=== PATIENT | male | born 1990 | race Caucasian/White ===

== ENCOUNTER 2016-12-28 09:23 | Emergency (ER) | payer OTHER ==
[2016-12-28] MEDS ORDERED: NS 0.9% 1000 ML* 1,000 ML IV ONE ×2 (10:21→12:56)
[2016-12-28 11:01] LABS: Hematocrit 52 % (42-52); Hemoglobin 17.4 g/dl (14.0-18.0); Mean Corpuscular HGB Conc 33 g/dl (31-36); Mean Corpuscular Hemoglobin 30 pg (27-31); Mean Corpuscular Volume 90 fL (80-94); Mean Platelet Volume 9 um3 (7.4-10.4); Red Blood Count 5.77 10^6/ul (4.0-5.4); Red Cell Distribution Width 14 % (10.5-15); White Blood Count 5.9 10^3/ul (3.5-10.8)
[2016-12-28 11:16] LABS: Albumin 4.3 g/dL (3.2-5.2); BUN/Creatinine Ratio 15.6 (8-20); C Reactive Protein 6.92 mg/L (< 5.00); Calcium 9.4 mg/dL (8.6-10.3); EGFR African American 87.4 (>60); EGFR Non-African American 67.9 (>60); Globulin 2.5 g/dL (2-4); Potassium 4.2 mmol/L (3.5-5.0); Total Bilirubin 1.4 mg/dL (0.2-1.0); Total Protein 6.8 g/dL (6.4-8.9)
[2016-12-28] MEDS ORDERED: Iohexol 300* (CONTRAST) 10 ML SDV IV ONE (13:19)
--- NOTE | 2016-12-28 14:23 | RAD ---
INDICATION: Abdominal pain with eating. COMPARISON: There are no prior studies available for comparison. TECHNIQUE: Multiple real-time images of the right upper quadrant were obtained. FINDINGS: There are several small gallbladder wall polyps measuring up to 2-3 mm in size. No gallstones are seen. No gallbladder wall thickening or pericholecystic fluid is present. No intra or extrahepatic ductal distention is present. The common bile duct measured 0.2 cm in diameter. The liver is normal in size without significant focal abnormality. The pancreas is partially obscured by overlying bowel gas. The right kidney is normal in size without evidence for hydronephrosis. IMPRESSION: SMALL GALLBLADDER POLYPS, OTHERWISE UNREMARKABLE STUDY.
--- NOTE | 2016-12-28 15:04 | RAD ---
Indication: Abdominal pain. Contrast: Administered 133.0 ml of OMNIPAQUE 300 mgi/ml. CT of the abdomen and pelvis was performed after oral and IV contrast administration. Coronal and sagittal reconstructed images were obtained. Delayed images of the kidneys were also obtained. The lung bases demonstrate no pleural fluid, nodules or masses. Heart is of normal size without evidence of pericardial effusion. The liver is normal in size. There are no focal lesions or intrahepatic ductal dilatation noted. The spleen is normal in size. The pancreas demonstrates no mass or pancreatic ductal dilatation. The common duct is not dilated. The gallbladder demonstrates no calcified gallstones. No adrenal masses are noted. The kidneys demonstrate symmetric nephrograms without focal lesions. No hydronephrosis or hydroureter is noted. No retroperitoneal lymphadenopathy is noted. No dilated loops of bowel are noted. Aorta and inferior vena cava are unremarkable. CT of the pelvis demonstrates urinary bladder to be unremarkable. The colon is filled with stool no hernias are noted. No evidence of bowel obstruction is noted. No abnormal dilatation of bowel is noted. Urinary bladder is otherwise unremarkable. The prostate is unremarkable. IMPRESSION: NO EVIDENCE OF ABNORMAL MASSES OR FLUID COLLECTIONS ARE NOTED. NO EVIDENCE OF BOWEL OBSTRUCTION IS NOTED. CONTRAST IS NOTED IN THE COLON.
[2016-12-28 15:20] LABS: Urine Bilirubin Negative (Negative); Urine Glucose Negative (Negative); Urine Nitrite Negative (Negative)
[2016-12-28 15:40] VITALS: BP 113/57
[2016-12-28] MEDS ORDERED: Magnesium CITRATE* 300 ML BTL PO ONE (15:41)
--- NOTE | 2016-12-28 15:44 | ED ---
Gricelda Lock Edward, scribed for Bean Castro MD on 12/28/16 at 1254 . Abdominal Pain/Male - HPI Summary HPI Summary: 26 y/o male presents to ED c/o ABD pain and constipation. Patient states that he has severe ABD pain every time he eats, starting Sunday afternoon. The pain is located in the LUQ and lasts around 20 minutes before passing. Associated sx : no bowel movements for the last few days, possible dehydration and RUQ ABD pain. Denies vomiting, dysuria, problems with urination, nausea, fever and chills. Patient works out frequently and takes branched amino acids and protein supplements. FHx GERD (father). No SHx. - History of Current Complaint Chief Complaint: EDAbdPain Stated Complaint: ABD PAIN Time Seen by Provider: 12/28/16 12:43 Hx Obtained From: Patient Onset/Duration: Lasting Minutes - Last around 20 minutes every time he eats Severity Initially: Severe - "Pain puts him on back every time he eats" Severity Currently: Moderate Pain Intensity: 5 Pain Scale Used: 0-10 Numeric Location: Discrete At: LUQ Aggravating Factor(s): Food - Pain every time he eats Associated Signs And Symptoms: Positive: Constipation. Negative: Fever, Urinary Symptoms, Nausea, Vomiting - Allergies/Home Medications Allergies/Adverse Reactions: Allergies Allergy/AdvReac Type Severity Reaction Status Date / Time Lactose Intolerance (GI) Allergy Congestion Verified 12/28/16 09:47 PMH/Surg Hx/FS Hx/Imm Hx Previously Healthy: Yes GI History: Denies: Hx Gastroesophageal Reflux Disease Infectious Disease History: No Infectious Disease History: Denies: Traveled Outside the [place] in Last 30 Days - Family History Known Family History: Positive: Other - Father - GERD - Social History Alcohol Use: Occasionally Substance Use Type: Reports: Marijuana Substance Use Comment - Amount & Last Used: daily Hx Tobacco Use: Yes Smoking Status (MU): Former Smoker Review of Systems Constitutional: Negative Negative: Fever, Chills Eyes: Negative ENT: Negative Cardiovascular: Negative Respiratory: Negative Positive: Abdominal Pain - Left side every time he eats, Other - Constipation. Negative: Vomiting, Nausea Genitourinary: Negative Negative: dysuria Musculoskeletal: Negative Skin: Negative Neurological: Negative Psychological: Normal All Other Systems Reviewed And Are Negative: Yes Physical Exam Triage Information Reviewed: Yes Vital Signs On Initial Exam: Initial Vitals Temp Pulse Resp BP Pulse Ox 98.3 F 80 18 134/72 99 12/28/16 09:26 12/28/16 09:26 12/28/16 09:26 12/28/16 09:26 12/28/16 09:26 Vital Signs Reviewed: Yes Appearance: Positive: Well-Appearing, No Pain Distress, Well-Nourished Skin: Positive: Warm, Skin Color Reflects Adequate Perfusion, Dry Head/Face: Positive: Normal Head/Face Inspection Eyes: Positive: Normal, EOMI, LALA ENT: Positive: Normal ENT inspection Neck: Positive: Supple, Nontender Respiratory/Lung Sounds: Positive: Clear to Auscultation, Breath Sounds Present Cardiovascular: Positive: RRR Abdomen Description: Positive: Soft, Other: - Tenderness in LUQ and RUQ Bowel Sounds: Positive: Present Musculoskeletal: Positive: Normal, Strength/ROM Intact Neurological: Positive: Normal, Sensory/Motor Intact, Alert, Oriented to Person Place, Time Psychiatric: Positive: Normal, Affect/Mood Appropriate - [place] Coma Scale Coma Scale Total: 15 Diagnostics - Vital Signs Vital Signs Temp Pulse Resp BP Pulse Ox 12/28/16 11:00 65 96 12/28/16 10:30 63 119/61 97 12/28/16 10:00 70 115/58 96 12/28/16 09:58 72 96 12/28/16 09:56 111/65 12/28/16 09:38 98.3 F 80 18 134/72 99 12/28/16 09:26 98.3 F 80 18 134/72 99 - Laboratory Lab Results: Lab Results 12/28/16 12/28/16 12/28/16 Range/Units 10:53 10:53 10:53 WBC 5.9 (3.5-10.8) 10^3/ul RBC 5.77 H (4.0-5.4) 10^6/ul Hgb 17.4 (14.0-18.0) g/dl Hct 52 (42-52) % MCV 90 (80-94) fL MCH 30 (27-31) pg MCHC 33 (31-36) g/dl RDW 14 (10.5-15) % Plt Count 144 L (150-450) 10^3/ul MPV 9 (7.4-10.4) um3 Neut % (Auto) 59.8 (38-83) % Lymph % (Auto) 27.9 (25-47) % [place] % (Auto) 11.0 H (1-9) % Eos % (Auto) 0.8 (0-6) % Baso % (Auto) 0.5 (0-2) % Absolute Neuts (auto) 3.6 (1.5-7.7) 10^3/ul Absolute Lymphs (auto) 1.7 (1.0-4.8) 10^3/ul Absolute Monos (auto) 0.7 (0-0.8) 10^3/ul Absolute Eos (auto) 0 (0-0.6) 10^3/ul Absolute Basos (auto) 0 (0-0.2) 10^3/ul Absolute Nucleated RBC 0 10^3/ul Nucleated RBC % 0.1 Sodium 137 (133-145) mmol/L Potassium 4.2 (3.5-5.0) mmol/L Chloride 102 (101-111) mmol/L Carbon Dioxide 29 (22-32) mmol/L Anion Gap 6 (2-11) mmol/L BUN 20 (6-24) mg/dL Creatinine 1.28 H (0.67-1.17) mg/dL Est GFR ( Amer) 87.4 (>60) Est GFR (Non-Af Amer) 67.9 (>60) BUN/Creatinine Ratio 15.6 (8-20) Glucose 97 (70-100) mg/dL Lactic Acid 0.9 (0.5-2.0) mmol/L Calcium 9.4 (8.6-10.3) mg/dL Total Bilirubin 1.40 H (0.2-1.0) mg/dL AST 41 H (13-39) U/L ALT 49 (7-52) U/L Alkaline Phosphatase 57 (34-104) U/L C-Reactive Protein 6.92 H (< 5.00) mg/L Total Protein 6.8 (6.4-8.9) g/dL Albumin 4.3 (3.2-5.2) g/dL Globulin 2.5 (2-4) g/dL Albumin/Globulin Ratio 1.7 (1-3) Lipase 20 (11.0-82.0) U/L Result Diagrams: 12/28/16 10:53 12/28/16 10:53 Lab Statement: Any lab studies that have been ordered have been reviewed, and results considered in the medical decision making process. - CT ABD/PELVIS CT CT Interpretation: No Acute Changes - NO EVIDENCE OF ABNORMAL MASSES OR FLUID COLLECTIONS ARE NOTED. NO EVIDENCE OF BOWEL OBSTRUCTION IS NOTED. CONTRAST IS NOTED IN THE COLON. CT Interpretation Completed By: Radiologist - Ultrasound No standard instances Ultrasound Interpretation: Positive (See Comments) - GALLBLADDER US - SMALL GALLBLADDER POLYPS, OTHERWISE UNREMARKABLE STUDY Ultrasound Interpretation Completed By: Radiologist Abdominal Pain Fem Course/Dx - Course Course Of Treatment: NO CRITICAL CARE TIME. DISCUSSED RESULTS WITH PAITIENT. PAIN FREE IN ED AT [facility]. DISCHARGE HOME STABLE. - Diagnoses Provider Diagnoses: Creatinine elevation, Abdominal pain, Constipation Discharge - Discharge Plan Condition: Stable Disposition: HOME Patient Education Materials: Acute Abdominal Pain (ED), Constipation (ED), Impaired Kidney Function (ED) Referrals: [facility] [place], [place] [facility] REFERRAL [Outside] Non Staff,Doctor [Primary Care Provider] - Additional Instructions: FOLLOW UP WITH YOUR [facility] DOCTOR FOR YOU ABDOMINAL PAIN, CONSTIPATION AND ELEVATED CREATININE. RETURN TO THE EMERGENCY DEPARTMENT FOR ANY WORSENING OF YOUR CONDITION; PAIN, FEVER, VOMITING, YOU FEEL ILL OR QUESTIONS OR CONCERNS. The documentation as recorded by the Gricelda brewer Edward accurately reflects the service I personally performed and the decisions made by me, Bean Castro MD.
== END 2016-12-28 16:01 | disposition home or self-care (01) ==
LOC: MERGE 09:23 → ED 09:23
DX: R79.89 Other specified abnormal findings of blood chemistry (principal); R10.12 Left upper quadrant pain; K59.00 Constipation, unspecified; Z87.891 Personal history of nicotine dependence
CPT/HCPCS: 36415; 74177; 76705; 80053; 81003; 83605; 83690; 85025; 86140; 99283; A9270-GY; Q9967

== ENCOUNTER 2018-04-19 08:43 | Emergency (ER) | payer OTHER ==
[2018-04-19 09:00] VITALS: BP 124/68
[2018-04-19] MEDS ORDERED: Rabies Immune Globulin 2 ML* 150 UNITS/ML VIAL IM ONE (09:25)
--- NOTE | 2018-04-19 11:14 | UC ---
General HPI - HPI Summary HPI Summary: Patient sustained a dog bite 4 days ago to his right hand. Was seen at [facility] in [place] 3 days ago and had RIG administered IM and the first of his rabies vaccines. Patient is up-to-date tetanus. Xrays obtained and pt reports they were negative. Was contacted by the health Department and advised to come here to for infiltration of the wound with additional RIG. Wounds are healing well. No surrounding erythema or drainage. Nursing staff contacted [facility] and confirmed this recommendation for additional RIG. - History of Current Complaint Chief Complaint: UCBiteInjury Stated Complaint: RABIES Time Seen by Provider: 04/19/18 09:16 Hx Obtained From: Patient Onset/Duration: Sudden Onset, Lasting Days, Still Present Onset Severity: Moderate Current Severity: Mild Pain Intensity: 3 Associated Signs & Symptoms: Negative: Fever - Allergy/Home Medications Allergies/Adverse Reactions: Allergies Allergy/AdvReac Type Severity Reaction Status Date / Time lactose Allergy Congestion Verified 04/19/18 08:53 Home Medications: Home Medications NK [No Home Medications Reported] 04/19/18 [History Confirmed 04/19/18] PMH/Surg Hx/FS Hx/Imm Hx Previously Healthy: Yes - Surgical History Surgical History: None - Family History Known Family History: Positive: Other - Father - GERD - Social History Alcohol Use: Occasionally Substance Use Type: Marijuana Substance Use Comment - Amount & Last Used: daily Smoking Status (MU): Former Smoker Review of Systems Constitutional: Negative Skin: Other - HEALING WOUNDS RIGHT HAND Respiratory: Negative Cardiovascular: Negative Gastrointestinal: Negative All Other Systems Reviewed And Are Negative: Yes Physical Exam Triage Information Reviewed: Yes Appearance: Well-Appearing, No Pain Distress, Well-Nourished Vital Signs: Initial Vital Signs Temp 98.7 F 04/19/18 08:54 Pulse 70 04/19/18 08:54 Resp 16 04/19/18 08:54 BP 124/68 04/19/18 08:54 Pulse Ox 98 04/19/18 08:54 Vital Signs Reviewed: Yes Eyes: Positive: Conjunctiva Clear ENT: Positive: Hearing grossly normal Neck: Positive: Supple Respiratory: Positive: No respiratory distress, No accessory muscle use Cardiovascular: Positive: Pulses Normal Abdomen Description: Positive: Soft Musculoskeletal: Positive: ROM Intact, No Edema Neurological: Positive: Alert Psychological: Positive: Age Appropriate Behavior Skin: Positive: Other - 4MM HEALING PUNTURE WOUND RIGHT HAND PALMAR SURFACE THENAR EMINENCE. NO ERYTHEMA OR DRAINAGE. 8MM HEALING LACERATION RIGHT INDEX FINGER DISTAL TIP ABUTTING THE NAIL. NO ERYTHEMA OR DRAINAGE Course/Dx - Course Course Of Treatment: 0.5ML RIG INJECTED INTO HEALING WOUNDS ON RIGHT HAND. FOLLOWING UP AT FOR 2ND RABIES VACCINE TODAY. - Differential Dx - Multi-Symptom Provider Diagnoses: DOG BITE - RIG INJECTION Discharge - Sign-Out/Discharge Documenting (check all that apply): Patient Departure All imaging exams completed and their final reports reviewed: No Studies - Discharge Plan Condition: Stable Disposition: HOME Patient Education Materials: Rabies Immune Globulin (By injection), Rabies (ED) Referrals: No Primary Care Phys,NOPCP [Primary Care Provider] - Additional Instructions: YOU RECEIVED 0.5ML OF THE RABIES IMMUNE GLOBULIN INTO THE WOUNDS ON YOUR HAND TODAY. FOLLOW-UP AT THE HEALTH DEPARTMENT TODAY FOR YOUR NEXT RABIES VACCINE SCHEDULED. - Billing Disposition and Condition Condition: STABLE Disposition: Home
== END 2018-04-19 09:57 | disposition home or self-care (01) ==
LOC: UCEAST 08:43
DX: S61.431A Puncture wound without foreign body of right hand, initial encounter (principal); W54.0XXA Bitten by dog, initial encounter; Y92.9 Unspecified place or not applicable; Z87.891 Personal history of nicotine dependence
CPT/HCPCS: 90375; 99211; G0463

== ENCOUNTER 2019-07-22 08:32 | Emergency (ER) | payer SELFPAY ==
[2019-07-22 08:46] VITALS: BP 121/73
[2019-07-22] MEDS ORDERED: Lidocaine 2% VISCOUS* 15 ML UDC TOPICAL ONE (09:01)
[2019-07-22] MEDS ORDERED: Tetan/Diph/Pertus SYR(Tdap)* 0.5 ML SYR(BOOSTRIX) use SYR contains LATEX IM ONE (09:02)
--- NOTE | 2019-07-22 10:00 | UC ---
Hand/Wrist HPI - HPI Summary HPI Summary: Patient is a 28yo male presenting with injury to left third fingertip. 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 States he was "just going to suck it up" but that it hurts too much. States it bled immediately at the time of injury and intermittently since. Denies swelling or bruising. Denies decreased range of motion. Denies numbness or tingling. Not UTD on tetanus. - History Of Current Complaint Chief Complaint: UCWounds Stated Complaint: FINGER INJURY Hx Obtained From: Patient Pain Intensity: 9 Pain Scale Used: 0-10 Numeric - Allergies/Home Medications Allergies/Adverse Reactions: Allergies Allergy/AdvReac Type Severity Reaction Status Date / Time lactose Allergy Congestion Verified 07/22/19 08:46 Home Medications: Home Medications Sertraline* [Zoloft*] 25 mg PO DAILY 07/22/19 [History Confirmed 07/22/19] PMH/Surg Hx/FS Hx/Imm Hx Previously Healthy: Yes - Surgical History Surgical History: None - Family History Known Family History: Positive: Other - Father - GERD - Social History Alcohol Use: Occasionally Substance Use Type: Marijuana Substance Use Comment - Amount & Last Used: daily Smoking Status (MU): Former Smoker Review of Systems All Other Systems Reviewed And Are Negative: Yes Constitutional: Positive: Negative. Negative: Fever, Chills Skin: Positive: Other - "cut" on L 3rd fingertip. Negative: Bruising Respiratory: Positive: Negative Cardiovascular: Positive: Negative Gastrointestinal: Positive: Negative Musculoskeletal: Positive: Negative. Negative: Arthralgia, Decreased ROM, Edema Neurological: Negative: Paresthesia, Numbness Physical Exam Triage Information Reviewed: Yes Appearance: Well-Appearing, No Pain Distress, Well-Nourished Vital Signs: Initial Vital Signs Temp 97.9 F 07/22/19 08:40 Pulse 51 07/22/19 08:40 Resp 18 07/22/19 08:40 BP 121/73 07/22/19 08:40 Pulse Ox 96 07/22/19 08:40 Vital Signs Reviewed: Yes Eyes: Positive: Conjunctiva Clear ENT: Positive: Hearing grossly normal Neck: Positive: Supple Respiratory: Positive: No respiratory distress Cardiovascular: Positive: Pulses Normal, Brisk Capillary Refill - <2 sec Musculoskeletal: Positive: Strength Intact, ROM Intact - L 3rd finger flexion/ extension intact, No Edema Neurological Exam: Other - sensation grossly intact Neurological: Positive: Alert Psychological: Positive: Age Appropriate Behavior Skin: Positive: Other - superficial skin avulsion of L 3rd fingertip ~1cm long. minimal bleeding noted. no surrounding erythema or warmth. no purulent drainage. no nail involvement. Hand/Wrist Course/Dx - Course Course Of Treatment: Patient received wound irrigation and fingers placing viscous lidocaine for pain relief. Patient also received tetanus booster. Skin avulsion superficial and without need for repair. I applied Surgicel and tube gauze for dressing. Educated on wound care and dressing changes going forward. Educated on signs and symptoms of infection and instructed to return or go to emergency room if any occur. Patient voiced understanding and agreed with treatment plan. - Differential Dx/Diagnosis Provider Diagnosis: Avulsion of skin of middle finger without complication Discharge ED - Sign-Out/Discharge Documenting (check all that apply): Patient Departure All imaging exams completed and their final reports reviewed: No Studies - Discharge Plan Condition: Stable Disposition: HOME Patient Education Materials: Skin Avulsion (ED) Referrals: Marlena Gomez [Primary Care Provider] - If Needed Additional Instructions: Your wound was cleaned and a dressing was applied here at the urgent care. No further treatment is needed. Keep the area clean and dry for the first 24-48 hours. After that, you may gently wash with soap and warm water. Change the dressing as needed after the first 24 hours. You may continue to take ibuprofen and/or tylenol as directed for pain relief. Monitor the area for infection over the next several days. Return or go to the emergency room if you experience increasing redness and warmth of the area, drainage, increasing pain, fever, or nausea and vomiting. You also received a tetanus booster today. You may be sore at the site of injection, but this should resolve after a few days. - Billing Disposition and Condition Condition: STABLE Disposition: Home - Attestation Statements Provider Attestation: This patient was not seen by me. I was available for consult. Chart reviewed. MIKE
== END 2019-07-22 10:23 | disposition home or self-care (01) ==
LOC: UCEAST 08:32
DX: S61.203A Unspecified open wound of left middle finger without damage to nail, initial encounter (principal); W29.8XXA Contact with other powered hand tools and household machinery, initial encounter; Y92.9 Unspecified place or not applicable; Y99.0 Civilian activity done for income or pay; Z87.891 Personal history of nicotine dependence; Z91.011 Allergy to milk products
CPT/HCPCS: 90471; 90715; 99212; G0463